=== PATIENT | male | born 1995 | race Caucasian/White ===

== ENCOUNTER 2016-12-19 01:29 | Emergency (ER) | payer OTHER ==
[~2016-12-19] VITALS: Ht 165.1 cm; Wt 72.6 kg
[2016-12-19 01:40] VITALS: BP_SYST 133
[2016-12-19 01:57] VITALS: BP_SYST 133
== END 2016-12-19 01:57 ==
LOC: SED 01:29
DX: Z02.89 Encounter for other administrative examinations (principal); F10.129 Alcohol abuse with intoxication, unspecified
CPT/HCPCS: 99283